=== PATIENT | male | born 1930 | race Caucasian/White ===

== ENCOUNTER 2016-10-10 12:09 | Inpatient (IN) | payer MEDICARE, OTHER ==
--- NOTE | ~2016-10-10 | HP ---
History And Physical [place] [id number] [facility] [place]. [address] NAME: EDMUND GARCIA : 29 STATUS : ADM IN PAT#: [id number] AGE: 86 ADM/REG DATE : 10/10/16 MR#: [id number] REPORT SERV DATE: 10/11/16 DICTATED BY: BETSY RUSSELL DATE: 10/10/16 REPORT STATUS : Draft TRANSCRIBED BY: MODL DATE: 10/10/16 DATE OF ADMISSION: 10/10/2016 HISTORY OF PRESENT ILLNESS: This is an 86-year-old gentleman with end-stage lung disease and underlying bronchiectasis, who is oxygen and steroid dependent, has had three nights of bad breathing having to sit up to breathe. Apparently, he was in phone conversation with Dr. Braden's office this morning and they recommended that he come to the emergency room because he sounded so short of breath on the phone. The patient does not have any memory of actually calling their office. CHRONIC HEALTH HISTORY: Notes longstanding COPD, which is oxygen and steroid dependent with underlying bronchiectasis. He has chronic atrial fibrillation, distant coronary artery disease, diastolic congestive heart failure, history of pulmonary embolism with an IVC filter placed. He is not on anticoagulation therapy due to prior bleeding and underlying chronic anemia. He has hypertension, large left inguinal hernia and arthritis involving the shoulders and hips. HOME MEDICATIONS: Include prednisone 20 mg daily, Lasix 40 mg two tablets q.a.m. recently increased, atorvastatin 80 mg daily, aspirin 81 mg daily, lisinopril 5 mg daily, magnesium 400 mg daily, metoprolol 50 mg b.i.d., Prilosec 20 mg daily, potassium 20 mEq two tablets daily, p.r.n. tramadol. His inhalers include Incruse Ellipta inhaled daily. He has DuoNebs plus he is also on Brovana and Pulmicort. It is not clear exactly how he is taking these. ALLERGIES: NO RECOGNIZED DRUG ALLERGIES. SOCIAL HISTORY: No habits. He lives with his , who is an invalid. REVIEW OF SYSTEMS: No fever. Sputum production has maybe been a bit more. Color and quantity are always dark and discolored. No blood. No recognized chest pain. No nausea or vomiting. His stools have been black, so he has left off iron recently. He is Johnson dependent. He has had some increased bowel frequency. Lower extremity edema has been modest. Lasix was increased recently in an effort to improve that. Over the last month, he has developed a gangrenous ulcer on the medial aspect of his left great toe. He has been getting home health directed wound management. PHYSICAL EXAMINATION: GENERAL: He is seen in the hospital room. His son is present. He is on oxygen. He is alert, pleasant, modest increase work of breathing with increased expiratory phase. VITAL SIGNS: Presents to the emergency room afebrile, blood pressure 101/80, 96% on oxygen. HEENT: Not remarkable. No appreciable JVD. LUNGS: Breath sounds are diminished throughout. Very faint inspiratory wheezing. Increased expiratory phase throughout. No wheezes. No egophony recognized. HEART: Tones are distant, irregular but controlled. ABDOMEN: Scaphoid, nontender. No mass or guarding. I did not examine the inguinal hernia. EXTREMITIES: Show no meaningful edema currently. There is a 2 x 2 cm ulcer on the medial History And Physical [address] [address] NAME: EDMUND GARCIA : 29 STATUS : ADM IN [facility]#: [id number] AGE: 86 ADM/REG DATE : 10/10/16 MR#: [id number] REPORT SERV DATE: 10/11/16 DICTATED BY: BETSY RUSSELL DATE: 10/10/16 REPORT STATUS : Draft TRANSCRIBED BY: MODL DATE: 10/10/16 aspect of the left great toe and a 2 mm proximal ulcer. Pedal pulses are not palpable. LABORATORY AND DIAGNOSTIC DATA: BNP 353. White count 10,900, hemoglobin 10.6, hematocrit 32.8 with normal MCV. Sodium 139, potassium 4.9 BUN 21, creatinine 1.34. Troponin 0.09, slightly elevated. Blood gas 7.44/29/116 on 3 L. Chest x-ray shows a stable pattern of bronchiectasis. Sputum Gram stain shows many gram-negative bacilli. IMPRESSION: 1. Chronic obstructive pulmonary disease exacerbation. Nothing to suggest pneumonia, heart failure, or significant bronchospasm. I fear that Mr. Garcia is pretty close to end stage. I am not sure how much room for improvement there is. He is followed regularly by Dr. Braden and we will consult them, keep him on IV steroids. He has been started on antibiotics through the emergency room. We will continue him on Lasix, switch to IV. We reviewed code status, which he is contemplating. He understands and does not want to be placed on a ventilator and such will be ordered. 2. Bronchiectasis. 3. Chronic atrial fibrillation. 4. Coronary artery disease. 5. Diastolic dysfunction. 6. History of pulmonary embolism with IVC filter. 7. Chronic Johnson dependency. 8. 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 PLAN: See orders. I have no plan for pursuing the ischemic toe. JUSTIN/MODL Betsy Russell M.D. / [id number] CC: Sandy Painting M.D.
--- NOTE | ~2016-10-10 | DS ---
Discharge Summary [facility] [address] [place]. [address] NAME: EDMUND WESTON : 29 STATUS : DIS IN PAT#: [id number] AGE: 86 ADM/REG DATE : 10/10/16 MR#: [id number] REPORT SERV DATE: 10/14/16 DICTATED BY: BETSY RUSSELL DATE: 10/13/16 REPORT STATUS : Draft TRANSCRIBED BY: MODL DATE: 10/13/16 ADMISSION DATE: 10/10/2016 DISCHARGE DATE: 10/13/2016 ADMITTING DIAGNOSIS: Chronic obstructive pulmonary disease exacerbation. DISCHARGE DIAGNOSES: 1. Chronic obstructive pulmonary disease exacerbation with underlying bronchiectasis. 2. Atrial fibrillation with rapid ventricular response and nonsustained ventricular tachycardia. 3. Ischemic left great toe. 4. Coronary artery disease. 5. Chronic Johnson catheter. 6. History of iron deficiency anemia. 7. IVC filter for previous pulmonary emboli and deep vein thrombosis. 8. Pulmonary hypertension with tricuspid regurgitation and right atrial hypokinesis. 9. Normal LV function. Ejection fraction 45%. CONSULTANTS: Mr. Fuentes representing Pulmonary Service and Dr. Nahum Lowery representing Dr. Delgado. ADMISSION SUMMARY: An 86-year-old oxygen-dependent and steroid-dependent COPD gentleman presented to the emergency room with several days of worsening shortness of breath. Recently, he has had a cardiac evaluation including an echocardiogram. He was admitted for inpatient care due to his worsening symptoms. DATA: On admission, white count was 10,900, hemoglobin 10.1, hematocrit 32.1. INR 1.3. Sodium 139, potassium 4.9, BUN 21, creatinine 1.34, BNP 353. Initial troponin was 0.09, mildly elevated. Blood gas on admission 744/29/116 on 32% oxygen. [place]charge [place] [address], hemoglobin 10.5. Sodium 136, potassium 4.9, BUN 44, creatinine 1.7 down from 1.82, procalcitonin was 0.13. Sputum grew abundant growth of Proteus and Enterobacter, which were both sensitive to Cipro. Chest x-ray showed a stable pattern of bronchiectasis and fibrosis bilaterally. HOSPITAL COURSE: The patient was admitted with COPD exacerbation. He had not had fever. He was seen in consultation by the Pulmonary Service represented by Mr. Fuentes. Steroids were bumped. He was given bronchodilator therapy. He was started on Daliresp. He was initially covered with antibiotics. Sputum prior to discharge grew two different gram-negative bacilli. Cardiac telemetry showed atrial fibrillation with a relatively rapid response and at one point, he had a 20-beat run of nonsustained ventricular tachycardia. Given his tachycardia and recent echocardiogram findings, Dr. Lowery recommended increasing his beta-nadia to three times a day and discontinuing low-dose lisinopril. The patient's diuretic was increased during hospitalization to 40 mg twice a day, but at discharge, it was reduced back to once a day to maintain fluid control. Discharge Summary [facility] [address] [place]. [address] NAME: EDMUND WESTON : 29 STATUS : DIS IN PAT#: [id number] AGE: 86 ADM/REG DATE : 10/10/16 MR#: [id number] REPORT SERV DATE: 10/14/16 DICTATED BY: BETSY RUSSELL DATE: 10/13/16 REPORT STATUS : Draft TRANSCRIBED BY: JOYCELYN DATE: 10/13/16 He has an ischemic left great toe, which was not addressed during the hospitalization and would continue with home health care management. He has a chronic Johnson, which was maintained during the hospitalization. Given his long-term prognosis being poor, given the severity of his underlying pulmonary situation, Palliative Care was consulted. The patient was going to consider hospice care once he had gotten home and met with hospice as an outpatient. By formal order, he was a do not intubate during this hospitalization. JUSTIN/JOYCELYN Betsy Russell M.D. / [id number] CC: Sandy Painting M.D. Carlos Baleeiro, M.D.
--- NOTE | ~2016-10-10 | CN ---
Consultation Report [facility] [address] [place]. [address] NAME: RICK WESTON : 29 STATUS : ADM IN [facility]#: [id number] AGE: 86 ADM/REG DATE : 10/10/16 MR#: [id number] REPORT SERV DATE: 10/12/16 DICTATED BY: DOMENICO LOWERY DATE: 10/12/16 REPORT STATUS : Draft TRANSCRIBED BY: MODL DATE: 10/12/16 CARDIOLOGY CONSULTATION DATE OF CONSULTATION: 10/12/2016 CORPORATE TAX MANAGER: Dr. Delgado. INDICATIONS: Nonsustained VT, chronic atrial fibrillation with RVR. HISTORY OF PRESENT ILLNESS: Rick Weston is an 86-year-old man with chronic severe COPD and bronchiectasis, who was admitted on 10/10/2016 with progressive shortness of breath. Pulmonary had been consulted, sees Dr. Braden as an outpatient. The patient has a history of ischemic heart disease with prior bypass grafting in 1987. He has an ejection fraction of 45%. He has chronic atrial fibrillation. He did have a 21-beat run of nonsustained ventricular tachycardia. The patient was asymptomatic with this. No sensation of palpitations or light headedness. He does have chronic atrial fibrillation with heart rates that have been ranging 100 to 120 while he is admitted here with COPD exacerbation. As an outpatient, his heart rates are in the 90s. He reports no angina. No syncope. He has severe and progressive shortness of breath. It is somewhat improved since admission. PAST MEDICAL HISTORY: Severe COPD, ischemic heart disease, prior bypass grafting, EF 45%, hypertension, chronic diastolic heart failure, pulmonary hypertension, tricuspid regurgitation, bronchiectasis, history of PE and IVC filter. SOCIAL HISTORY: Never smoker. FAMILY HISTORY: Reviewed and noncontributory. REVIEW OF SYSTEMS: As per the HPI. Otherwise, all other review of systems negative. PHYSICAL EXAMINATION: VITAL SIGNS: Blood pressure 105/56, pulse is 107, respiratory rate is 18. GENERAL: Appears stated age, no distress. EYES: Sclerae anicteric, no arcus senilis. MOUTH: Oral mucosa moist, lips acyanotic. NECK: Jugular venous pressure normal, no carotid bruits. LUNGS: Diffusely diminished breath sounds bilateral with rhonchi and mild wheezes. CARDIAC: Irregular rhythm. Heart sounds distant. No murmurs, gallops or rubs. ABDOMEN: Soft, nondistended, nontender. EXTREMITIES: No edema. SKIN: Warm and dry. NEURO/PSYCH: Alert and oriented, nonfocal, mood appropriate. Consultation Report [place] [address] [place]. [address] NAME: RICK WESTON : 29 STATUS : ADM IN PAT#: [id number] AGE: 86 ADM/REG DATE : 10/10/16 MR#: [id number] REPORT SERV DATE: 10/12/16 DICTATED BY: DOMENICO LOWERY DATE: 10/12/16 REPORT STATUS : Draft TRANSCRIBED BY: JOYCELYN DATE: 10/12/16 IMAGING: Telemetry demonstrates atrial fibrillation with intermittent RVR and run of nonsustained VT. Chest x-ray on admission shows COPD and bronchiectasis. DATA: Sodium 139, potassium 5.0, creatinine 1.8, magnesium 2.4. White count 16, hemoglobin 10, platelets 264. IMPRESSION: 1. Nonsustained ventricular tachycardia. Asymptomatic as with normal potassium and normal magnesium occurring in the context of an acute exacerbation of end-stage chronic obstructive pulmonary disease with an ejection fraction of 45% and history of coronary artery disease. 2. Chronic atrial fibrillation, not on oral anticoagulation secondary to history of bleeding. Blood pressures have been somewhat diminished of late since admission with systolics as low as the 80s and heart rates 100 to 120 range. 3. Severe chronic obstructive pulmonary disease with exacerbation as well as bronchiectasis. 4. Coronary artery disease, previous bypass grafting, mild LV dysfunction, and tricuspid regurgitation with severe right atrial enlargement. 5. History of pulmonary embolism and IVC filter. RECOMMENDATIONS: Recommend conservative measures for this gentleman. Would discontinue lisinopril and increase metoprolol to 50 mg p.o. b.i.d., and maximize treatment of underlying pulmonary process. Discussed with the patient. All questions answered. JERO/JOYCELYN Domenico Lowery M.D. / [id number] CC: Lázaro Franks M.D.
--- NOTE | ~2016-10-10 | CN ---
Consultation Report [facility] [address] [place]. [address] NAME: RICK GARCIA : 29 STATUS : ADM IN PAT#: [id number] AGE: 86 ADM/REG DATE : 10/10/16 MR#: [id number] REPORT SERV DATE: 10/11/16 DICTATED BY: DARRYL DAVID DATE: 10/11/16 REPORT STATUS : Draft TRANSCRIBED BY: MODL DATE: 10/11/16 CONSULTATION DATE OF CONSULTATION: 10/11/2016 CHIEF COMPLAINT: Dyspnea in a patient with end-stage lung disease. HISTORY OF PRESENT ILLNESS: Mr. Rick Garcia is a pleasant 86-year-old, white male with a past medical history significant for severe COPD with oxygen dependence, bronchiectasis, and PE, status post IVC filter, who presents to [facility]'s Emergency Room for worsening shortness of breath. It should be noted that, Mr. Garcia has had a declining course as of late. Mr. Garcia is followed in our outpatient clinic by Dr. Rl Braden. He is oxygen- dependent at 2 to 3 L. He is on chronic prednisone at 20 mg. He also takes Pulmicort, Brovana, and Incruse Ellipta. He has previously been prescribed the "Vest" therapy for his bronchiectasis. He has not been compliant with that as of late, because secondary to a reducible right inguinal hernia. The patient describes his exercise tolerance as being extremely poor, being only able to ambulate approximately 20 feet before experiencing some degree of shortness of breath. Mr. Garcia states that, approximately three to four weeks ago, he experienced an exacerbation of his COPD. He was seen by Dr. Braden soon afterwards, but by that time, he was already feeling much better. He was provided with a brief course of oral antibiotics. There was concern about worsening lower extremity edema and as such, his diuretics were transiently increased. He did have an outpatient echocardiogram, which revealed left ventricular systolic function of 45%. Severe right atrial enlargement with diffuse hypokinesis was noted. There was wldywjld-sh-dydmgq tricuspid regurgitation with some mild pulmonary hypertension. More recently, the patient has began to have worsening shortness of breath. He did contact our office and was referred to the emergency room. Upon arrival, the patient was noted to have a systolic blood pressure of 101. He was afebrile. His oxygenation was 96% on 4 L. Initial blood work revealed a white blood cell count of 10,900. An arterial blood gas was obtained, which revealed a pH of 7.44, PaCO2 of 29, PaO2 of 116, and a bicarb of 19.1. A chest x-ray was obtained, which did not reveal any acute changes. The patient was placed on antibiotics, diuretics, and breathing treatments. For the aforementioned reasons, he has been referred to the Pulmonary Service for further assessment. Mr. Garcia's main pulmonary complaint today is shortness of breath. This is worse on exertion and relieved by rest. He is near his baseline oxygenation status. He does have a cough that is producing nmns-lv-bzzfzomi amount of sputum, it is yellow tinged. He does have frequent exacerbations of his COPD. He has had previous empyema in the past. He has known bronchiectasis. Currently, he denies any recent episodes of hemoptysis. Consultation Report [address] [place]. [address] NAME: RICK GARCIA : 29 STATUS : ADM IN [facility]#: [id number] AGE: 86 ADM/REG DATE : 10/10/16 MR#: [id number] REPORT SERV DATE: 10/11/16 DICTATED BY: DARRYL DAVID DATE: 10/11/16 REPORT STATUS : Draft TRANSCRIBED BY: JOYCELYN DATE: 10/11/16 The patient does have a history of hypertension as well as atrial fibrillation. He currently denies any murmurs or angina. He does have some improving lower extremity edema. In regard to constitutional symptoms, he currently denies fever and chills, nausea, vomiting, night sweats, fatigue, decreased appetite, or unexplained weight loss. PAST MEDICAL HISTORY: 1. Chronic hypoxemic respiratory failure. 2. Severe COPD. 3. Bronchiectasis. 4. Remote history of empyema. 5. Lung nodules. 6. Pulmonary hypertension. 7. Chronic atrial fibrillation. 8. Coronary artery disease, status post CABG. 9. Systolic heart failure. 10.Pulmonary embolism, status post IVC filter. 11.Hypertension. 12.Osteoarthritis. 13.Ischemic toe. 14.Chronic Johnson. 15.Dyslipidemia. 16.Gastroesophageal reflux disease. PAST SURGICAL HISTORY: 1. Coronary artery bypass graft surgery. 2. Right hip replacement. 3. Excision of basal cell carcinoma x3. 4. Cataract surgery. 5. IVC filter [address]. FAMILY HISTORY: The patient denies family history of lung disease. SOCIAL HISTORY: The patient is . His has end-stage dementia. He has one son, who is very involved with his health care. 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 TOBACCO/ALCOHOL: As previously mentioned, Mr. Garcia described himself as a never smoker. He denies any recent alcohol or illicit drug use. MEDICATIONS: 1. DuoNebs. 2. Brovana. 3. Atorvastatin 80 mg. Consultation Report [place] [id number] [place]. [address] NAME: RICK GARCIA : 29 STATUS : ADM IN [facility]#: [id number] AGE: 86 ADM/REG DATE : 10/10/16 MR#: [id number] REPORT SERV DATE: 10/11/16 DICTATED BY: DARRYL DAVID DATE: 10/11/16 REPORT STATUS : Draft TRANSCRIBED BY: JOYCELYN DATE: 10/11/16 4. Budesonide. 5. Furosemide 40 mg. 6. Lisinopril 5 mg. 7. Metoprolol 5 mg. 8. Omeprazole 20 mg. 9. Potassium 20 mEq. 10.Prednisone 20 mg. 11.Tramadol 50 mg. 12.Incruse Ellipta. ALLERGIES: THE PATIENT HAS NO KNOWN DRUG ALLERGIES. REVIEW OF SYSTEMS: A complete review of systems was performed with the pertinent positives and negatives contained within the body of the HPI. PHYSICAL EXAMINATION: VITAL SIGNS: Blood pressure is 106/66, heart rate is 134, T-max is 97.4, respiratory rate is 22, SpO2 is 97% on 3 L. GENERAL: The patient is a pleasant, well-nourished/well-developed male, who is not currently exhibiting any signs of acute distress. Skin: Skin with appropriate texture and turgor. No rashes, lesions, or ulcers. Nails are clear without cyanosis or clubbing. HEENT: Head: Skull is normocephalic/atraumatic. Facies symmetric. No masses or lesions. Eyes: Sclera anicteric, conjunctiva pink without exudates. Extra ocular movements intact. Pupils are equal, round, reactive to light. Ears: Auricles and tragus without pain to palpation. Hearing is grossly intact. Nose: Bilateral nasal patency. Sinuses without tenderness upon palpation. Throat: The patient has fairly good dentition in good repair. Lips, oral mucosa, tongue, palate, and pharynx pink and moist without lesions. Uvula rises equally on phonation. Tongue midline without deviation. NECK: Neck supple. Trachea midline. No cervical lymphadenopathy appreciated. THORAX/LUNGS: Thorax is symmetric with equal chest rise. Breath sounds audible through entire field. Scattered rhonchi and expiratory wheezing appreciated.. CARDIOVASCULAR: Irregular rate and rhythm. No murmurs, rubs, or gallops. Anterior chest without thrills, heaves, or lifts. ABDOMEN: Soft. Non-distended, non-tender. Active bowel sounds in all four quadrants. No hepatosplenomegaly noted. PERIPHERAL VASCULAR: 1+ pitting edema and ischemic toe noted. No varicosities, stasis changes, open sores, ulcerations, or phlebitis. 2+ pulses in radial and dorsalis pedis. MUSCULOSKELETAL: Full AROM and PROM in all joints. No evidence of erythema, deformity, or crepitus. NEUROLOGIC: CN II - XII grossly intact. Good muscle bulk and tone bilaterally. Strength 5/5 throughout. PSYCHIATRIC: The patient demonstrates good judgment and insight. The patient is A&O x3. Consultation Report [address] [place]. [address] NAME: RICK GARCIA : 29 STATUS : ADM IN [facility]#: [id number] AGE: 86 ADM/REG DATE : 10/10/16 MR#: [id number] REPORT SERV DATE: 10/11/16 DICTATED BY: DARRYL DAVID DATE: 10/11/16 REPORT STATUS : Draft TRANSCRIBED BY: [facility] DATE: 10/11/16 ACCESSORY DATA: Reveals a creatinine of 1.40. BNP is 353.6. White blood cell count is 8200. Sputum has very rare gram-negative bacilli, a few gram-positive cocci, and a moderate amount of gram-positive cocci. Final culture is pending. Most recent pulmonary function testing reveals an FEV1 of 45% of predicted. Echocardiogram reveals a left ventricular ejection fraction of 40% to 45%, right systolic ventricular pressure is estimated to be 39. IMPRESSION: 1. Acute exacerbation of end-stage chronic obstructive pulmonary disease. 2. Bronchiectasis. 3. Systolic heart failure. 4. Pulmonary hypertension. 5. Atrial fibrillation. 6. Lung nodules. PLAN: 1. At this time, the patient has been appropriately placed on antibiotics. We will attempt to wean those to an oral equivalent. The patient is on steroid therapy. We will attempt to wean these to his baseline of 20 before discharge. He will be placed on a full armamentarium of nebulized medications. Moving forward, the patient may benefit from suppressive antibiotics such as azithromycin on Monday, Monday, and Monday regimen. We will also initiate Daliresp to lower his risk of recurrent exacerbations. 2. In regard to the patient's end-stage lung disease, it may be reasonable to ask palliative care to began a discussion with the patient about long-term goals. 3. In regard to the patient's systolic heart failure, primary team is managing diuretics. 4. In regard to the patient's gdlf-am-zotyisvs pulmonary hypertension, this is largely secondary to his intrinsic lung disease. I would not recommend an aggressive workup at this time. The aforementioned impression and plan has been discussed with Dr. Francois, who will follow further recommendations. We thank you for this consult and look forward to participating in the care of Mr. Rick Garcia. MERLIN/MODL Darryl David PA-C / [id number] Consultation Report [address] [address] NAME: RICK GARCIA : 29 STATUS : ADM IN PAT#: [id number] AGE: 86 ADM/REG DATE : 10/10/16 MR#: [id number] REPORT SERV DATE: 10/11/16 DICTATED BY: DARRYL DAVID DATE: 10/11/16 REPORT STATUS : Draft TRANSCRIBED BY: RASTAL DATE: 10/11/16 CC: Lázaro Franks M.D.
[2016-10-10 11:34] LABS: BASOPHILS 0.5 %; BASOPHILS ABSOLUTE 0.06 10/3/uL (0.0-0.16); EOSINOPHILS 5.6 %; EOSINOPHILS ABSOLUTE 0.61 10/3/uL (0.0-0.53); ER CBC TAT 0 Hrs 08 Mins; HEMATOCRIT 32.8 % (40.0-51.0); HEMOGLOBIN 10.6 g/dL (13.6-17.8); IMMATURE GRANULOCYTES 5.7 %; LYMPHOCYTES 8.2 %; MEAN CORPUS HGB CONC 32.3 g/dL (32.0-36.0); MEAN CORPUSCULAR HEMOGLOB 29.6 pg (26.0-34.0); MEAN CORPUSCULAR VOLUME 91.6 fL (80-100); MEAN PLATELET VOLUME 9.2 fL (9.2-13.0); MONOCYTES 2.9 %; MONOCYTES ABSOLUTE 0.32 10/3/uL (0.21-1.20); NEUTROPHILS 77.1 %; NEUTROPHILS ABSOLUTE 8.41 10/3/uL (2.02-8.40); PLATELET COUNT 259 10/3/uL (150-400); RBC DISTRIBUTION WIDTH 15.4 % (12.0-16.0); RED CELL COUNT 3.58 10/6/uL (4.7-6.1); WHITE BLOOD CELLS 10.9 10/3/uL (4.5-10.5)
[2016-10-10 11:35] LABS: IMMATURE GRANULOCYTES ABSOLUTE 0.62 10/3/uL (0.0-0.11); MANUAL DIFF NO %
[2016-10-10 11:40] LABS: INTERNATIONAL NORMAL RATI 1.3 UNITS (-); PARTIAL THROMBO TIME 28.6 SEC (22.5-37.2); PROTIME (NOT ORD) 15.8 SEC (12.0-14.5)
[2016-10-10 11:46] LABS: CARBOXYHEMOGLOBIN 0.5 % (0-3); HCO3 (ACTUAL BICARBONATE) 19.1 MEQ/L (23-27); HEMOBLOGIN CONTENT 11.5 G/DL (14-18); INSTRUMENT SERIAL # 8087; METHEMOGLOBIN 0.3 % (0-3); PCO2 (CO2 TENSION) 29 MMHG (35-45); PO2 (O2 TENSION) 116 MMHG (79-93); pH 7.44 (7.37-7.43)
[2016-10-10 11:47] LABS: ALLENS TEST Pos; DEVICE nc; O2 CONTENT 15.9 VOL% (18-24); OPERATOR ID 14335; SAMPLE Arterial
[2016-10-10 11:53] LABS: BUN (BLOOD UREA NITROGEN) 21 MG/DL (6-23); CHLORIDE, SERUM 105 MMOL/L (96-112); CO2 (CARBON DIOXIDE) 25 MMOL/L (24-34); CREATININE 1.34 MG/DL (0.70-1.30); GFR AFRICAN AMERICAN 55 ML/MIN (>=60); GFR NON AFRICAN AMERICAN 47 ML/MIN (>=60); GLUCOSE, SERUM 91 MG/DL (60-99); POTASSIUM, SERUM 4.9 MMOL/L (3.5-5.3); SODIUM, SERUM 139 MMOL/L (135-148)
[2016-10-10 11:54] LABS: CHEST PAIN PROFILE TAT 0 Hrs 28 Mins; TROPONIN I 0.09 NG/ML (<0.05)
[2016-10-10 11:58] LABS: BAND NEUTROPHILS 1 %; EOSINOPHILS 1 %; EOSINOPHILS ABSOLUTE (CALC) 0.11 10/3/uL (0.0-0.53); ER DIFF TAT 0 Hrs 32 Mins; IMMATURE GRANS ABSOLUTE (CALC) 0.11 10/3/uL (0.0-0.11); LYMPHOCYTES 5 %; LYMPHOCYTES ABSOLUTE (CALC) 0.55 10/3/uL (0.67-4.30); METAMYELOCYTES 1 %; MONOCYTES 8 %; MONOCYTES ABSOLUTE (CALC) 0.87 10/3/uL (0.21-1.20); NEUTROPHILS ABSOLUTE (CALC) 9.27 10/3/uL (2.02-8.40); SEGMENTED NEUTROPHIL (0) 84 %; TOTAL NUCLEATED CELLS 100
[2016-10-10 11:59] LABS: PLATELET ESTIMATE ADQ (ADEQUATE); RBC MORPHOLOGY NORM (NORMAL)
[~2016-10-10 12:09] MED LIST: ACET500CAP PO; ADVIL PO; ALTACE10 MG PO; ASA5GR PO; ASAB PO; ASAEC PO; ATROVENTUD INH; AUG875 PO; BACDS PO; CIP5 PO; FERROUS SULF325 M1 PO; FLOMAX4 PO; GLUCCHONDR PO; HALF81 PO; HCTZ12.5 PO; HUMI PO; HYDROCHLOROT12.5 MG PO; IBU400 PO; IRON325 MG PO; JANTOVEN1 MG PO; KLOR-CON M2020 MEQ PO; KLOR-CON20 MEQ PO; L20 PO; L40 PO; LIPITOR80 MG PO; LOP25 PO; LOP50 PO; LUBRIFRESH OPH; MAGOX4 PO; MULTIPLE VIT PO; NIACIN 500 PO; NIACOR500 MG PO; OCEAN NAS; OPTIVITE PO; OSTEO BI-FLEX1 EACH PO; OSTEO BIFLEX PO; P20 PO; PACERONE200 MG PO; PRADAXA150 MG PO; PRILO PO; PRIN5 PO; PROAIR HFA INH; PROTONIX PO; PROVENTSOL INH; SPIRIVA INH; SYMBICORT 160/41 INH INH; SYSTANE OPH; VITAMIN C PO; XARELTO15 MG PO; XARELTO20 MG PO; ZETIA PO; [UNRECOGNIZED DRUG - OTHER] PO
[2016-10-10] MEDS ORDERED: NITROSTAT0.4 MG SL (12:44)
[2016-10-10] MEDS ORDERED: XALAT OPH (12:44)
[2016-10-10] MEDS ORDERED: DUONEB INH (12:45)
[2016-10-10] MEDS ORDERED: ULTRA FRESH OPH (12:45)
[2016-10-10] MEDS ORDERED: LIPITOR80 MG PO (12:45)
[2016-10-10] MEDS ORDERED: PRILO PO (12:46)
[2016-10-10] MEDS ORDERED: PRIN5 PO (12:46)
[2016-10-10] MEDS ORDERED: FERROUS SULF325 M1 PO (12:46)
[2016-10-10] MEDS ORDERED: MAGOX4 PO (12:46)
[2016-10-10] MEDS ORDERED: LOP50 PO (12:46)
[2016-10-10] MEDS ORDERED: L40 PO ×2 (12:47)
[2016-10-10] MEDS ORDERED: KDUR20 PO ×2 (12:47)
[2016-10-10] MEDS ORDERED: HALF81 PO (12:48)
[2016-10-10] MEDS ORDERED: ULTRAM50 PO (12:48)
[2016-10-10] MEDS ORDERED: OSTEO BI-FLEX1 EACH PO (12:48)
[2016-10-10] MEDS ORDERED: P20 PO (12:48)
[2016-10-10] MEDS ORDERED: BROVANA15 MCG INH (12:49)
[2016-10-10] MEDS ORDERED: PULRESP.5 INH (12:49)
[2016-10-10] MEDS ORDERED: INCRUSE ELLI62.5 MCG INH (12:49)
[2016-10-11 04:14] LABS: BASOPHILS 0.1 %; BASOPHILS ABSOLUTE 0.01 10/3/uL (0.0-0.16); EOSINOPHILS 0 %; HEMATOCRIT 31.3 % (40.0-51.0); HEMOGLOBIN 10.4 g/dL (13.6-17.8); IMMATURE GRANULOCYTES 2.3 %; IMMATURE GRANULOCYTES ABSOLUTE 0.19 10/3/uL (0.0-0.11); LYMPHOCYTES 4.1 %; LYMPHOCYTES ABSOLUTE 0.34 10/3/uL (0.67-4.30); MEAN CORPUS HGB CONC 33.2 g/dL (32.0-36.0); MEAN CORPUSCULAR HEMOGLOB 30.4 pg (26.0-34.0); MEAN CORPUSCULAR VOLUME 91.5 fL (80-100); MEAN PLATELET VOLUME 9.9 fL (9.2-13.0); MONOCYTES 1.2 %; NEUTROPHILS 92.3 %; NEUTROPHILS ABSOLUTE 7.57 10/3/uL (2.02-8.40); PLATELET COUNT 246 10/3/uL (150-400); RED CELL COUNT 3.42 10/6/uL (4.7-6.1); WHITE BLOOD CELLS 8.2 10/3/uL (4.5-10.5)
[2016-10-11 04:19] LABS: MANUAL DIFF NO %
[2016-10-11 04:30] LABS: ALBUMIN 2.5 G/DL (3.5-5.0); BUN (BLOOD UREA NITROGEN) 23 MG/DL (6-23); CALCIUM, SERUM 8.5 MG/DL (8.5-10.4); CHLORIDE, SERUM 105 MMOL/L (96-112); CO2 (CARBON DIOXIDE) 23 MMOL/L (24-34); GFR AFRICAN AMERICAN 52 ML/MIN (>=60); GFR NON AFRICAN AMERICAN 45 ML/MIN (>=60); POTASSIUM, SERUM 4.9 MMOL/L (3.5-5.3); SGOT(AST) 17 U/L (5-40); SGPT(ALT) 16 U/L (5-65); SODIUM, SERUM 139 MMOL/L (135-148); TOTAL BILIRUBIN 0.3 MG/DL (0-1.2)
[2016-10-11 04:43] LABS: ALKALINE PHOSPHATASE 75 U/L (45-117); DIRECT BILIRUBIN < 0.1 MG/DL (0.0-0.4); GLUCOSE, SERUM 162 MG/DL (60-99); INDIRECT BILIRUBIN(NOT ORDER) 0.2 MG/DL (0.1-0.9)
[2016-10-12 06:35] LABS: BASOPHILS 0.1 %; BASOPHILS ABSOLUTE 0.01 10/3/uL (0.0-0.16); EOSINOPHILS 0 %; HEMATOCRIT 31.3 % (40.0-51.0); HEMOGLOBIN 10.3 g/dL (13.6-17.8); IMMATURE GRANULOCYTES 1.8 %; IMMATURE GRANULOCYTES ABSOLUTE 0.29 10/3/uL (0.0-0.11); LYMPHOCYTES 4.1 %; LYMPHOCYTES ABSOLUTE 0.67 10/3/uL (0.67-4.30); MEAN CORPUS HGB CONC 32.9 g/dL (32.0-36.0); MEAN CORPUSCULAR HEMOGLOB 29.9 pg (26.0-34.0); MEAN CORPUSCULAR VOLUME 90.7 fL (80-100); MEAN PLATELET VOLUME 9.8 fL (9.2-13.0); MONOCYTES 3.2 %; MONOCYTES ABSOLUTE 0.51 10/3/uL (0.21-1.20); NEUTROPHILS 90.8 %; NEUTROPHILS ABSOLUTE 14.69 10/3/uL (2.02-8.40); PLATELET COUNT 264 10/3/uL (150-400); RBC DISTRIBUTION WIDTH 15.5 % (12.0-16.0); RED CELL COUNT 3.45 10/6/uL (4.7-6.1)
[2016-10-12 06:38] LABS: MANUAL DIFF NO %; WHITE BLOOD CELLS 16.2 10/3/uL (4.5-10.5)
[2016-10-12 06:44] LABS: A/G RATIO 0.8 (0.7-1.9); ALBUMIN 2.7 G/DL (3.5-5.0); ALKALINE PHOSPHATASE 73 U/L (45-117); BUN (BLOOD UREA NITROGEN) 38 MG/DL (6-23); CALCIUM, SERUM 8.6 MG/DL (8.5-10.4); CHLORIDE, SERUM 102 MMOL/L (96-112); CO2 (CARBON DIOXIDE) 24 MMOL/L (24-34); CREATININE 1.82 MG/DL (0.70-1.30); GFR AFRICAN AMERICAN 38 ML/MIN (>=60); GFR NON AFRICAN AMERICAN 33 ML/MIN (>=60); GLOBULIN 3.5 G/DL (2.5-4.1); GLUCOSE, SERUM 140 MG/DL (60-99); SGOT(AST) 17 U/L (5-40); SGPT(ALT) 19 U/L (5-65); SODIUM, SERUM 139 MMOL/L (135-148); TOTAL BILIRUBIN 0.7 MG/DL (0-1.2); TOTAL PROTEIN 6.2 G/DL (6.0-8.5)
[2016-10-13 06:28] LABS: BASOPHILS 0.1 %; BASOPHILS ABSOLUTE 0.02 10/3/uL (0.0-0.16); EOSINOPHILS 0 %; HEMATOCRIT 31.8 % (40.0-51.0); HEMOGLOBIN 10.5 g/dL (13.6-17.8); IMMATURE GRANULOCYTES 3.1 %; LYMPHOCYTES 5.1 %; LYMPHOCYTES ABSOLUTE 0.82 10/3/uL (0.67-4.30); MEAN CORPUSCULAR HEMOGLOB 30.6 pg (26.0-34.0); MEAN CORPUSCULAR VOLUME 92.7 fL (80-100); MEAN PLATELET VOLUME 9.4 fL (9.2-13.0); MONOCYTES 3.5 %; MONOCYTES ABSOLUTE 0.57 10/3/uL (0.21-1.20); NEUTROPHILS 88.2 %; NEUTROPHILS ABSOLUTE 14.28 10/3/uL (2.02-8.40); PLATELET COUNT 245 10/3/uL (150-400); RBC DISTRIBUTION WIDTH 15.3 % (12.0-16.0); RED CELL COUNT 3.43 10/6/uL (4.7-6.1); WHITE BLOOD CELLS 16.2 10/3/uL (4.5-10.5)
[2016-10-13 06:34] LABS: MANUAL DIFF NO %
[2016-10-13 06:43] LABS: CALCIUM, SERUM 8.7 MG/DL (8.5-10.4); CHLORIDE, SERUM 105 MMOL/L (96-112); CO2 (CARBON DIOXIDE) 21 MMOL/L (24-34); GFR AFRICAN AMERICAN 41 ML/MIN (>=60); GFR NON AFRICAN AMERICAN 35 ML/MIN (>=60); POTASSIUM, SERUM 4.9 MMOL/L (3.5-5.3); SODIUM, SERUM 136 MMOL/L (135-148)
[2016-10-13 06:46] LABS: BUN (BLOOD UREA NITROGEN) 44 MG/DL (6-23); GLUCOSE, SERUM 110 MG/DL (60-99)
[2016-10-13 07:59] LABS: PROCALCITONIN 0.13 ng/mL (<0.5)
[2016-10-13] MEDS ORDERED: DALIRESP500 MCG PO (15:38)
[2016-10-13] MEDS ORDERED: ZITH250 PO (15:39)
[2016-10-13] MEDS ORDERED: LEVAQUIN750 MG PO (15:39)
== END 2016-10-13 17:17 | disposition home health service (06) | DRG 191 ==
LOC: ER 12:09 → 7NO 14:49
PROVIDERS: Emergency Medicine; Internal Medicine
DX: J44.1 Chronic obstructive pulmonary disease with (acute) exacerbation (principal); I47.2 Ventricular tachycardia; I27.2 Other secondary pulmonary hypertension; I50.32 Chronic diastolic (congestive) heart failure; I11.0 Hypertensive heart disease with heart failure; L97.529 Non-pressure chronic ulcer of other part of left foot with unspecified severity; J84.10 Pulmonary fibrosis, unspecified; Z51.5 Encounter for palliative care; Z99.81 Dependence on supplemental oxygen; I48.2 Chronic atrial fibrillation; I07.1 Rheumatic tricuspid insufficiency; I25.10 Atherosclerotic heart disease of native coronary artery without angina pectoris; B96.4 Proteus (mirabilis) (morganii) as the cause of diseases classified elsewhere; B96.89 Other specified bacterial agents as the cause of diseases classified elsewhere; F41.9 Anxiety disorder, unspecified; D64.9 Anemia, unspecified; L82.1 Other seborrheic keratosis; M16.0 Bilateral primary osteoarthritis of hip; M19.012 Primary osteoarthritis, left shoulder; M19.011 Primary osteoarthritis, right shoulder; Z86.711 Personal history of pulmonary embolism; Z86.718 Personal history of other venous thrombosis and embolism; Z79.52 Long term (current) use of systemic steroids; Z91.19 Patient's noncompliance with other medical treatment and regimen
CPT/HCPCS: 36600; 71010; 80048; 80053; 80076; 82805; 83735; 83880; 84145; 84484; 85025; 85610; 85730; 87040; 87070; 87077; 87186; 87205; 93005; 94640; 96374; 99285; A9270-GY; J0456; J2930